=== PATIENT | male | born 1990 | race Two or more races ===

== ENCOUNTER 2020-07-09 00:22 | Inpatient (IN) | payer OTHER ==
[~2020-07-09] VITALS: Ht 175.3 cm; Wt 100.0 kg
[2020-07-09] MEDS ORDERED: MORPHINE SULFATE 4 MG/ML VIAL. IV ONE (00:45)
[2020-07-09] MEDS ORDERED: IV NORMAL SALINE 1000ML BAG 1,000 ML IV ONE (00:45)
[2020-07-09 00:52] LABS: BASO # 0.1 x10^3/uL (0.0-0.2); BASO % 1 % (0-3); EOS # 0.2 x10^3/uL (0.0-0.7); EOS % 2 % (0-3); HEMOGLOBIN 15.6 g/dL (13.0-17.5); LYMPH % 41 % (24-48); MEAN CORPUSCULAR HEMOGLOBIN 30 pg (25-35); MEAN CORPUSCULAR HGB CONC 35 g/dL (31-37); MEAN CORPUSCULAR VOLUME 85 fL (79-100); MONO # 0.7 x10^3/uL (0.0-1.1); MONO % 7 % (0-9); NEUT # 4.7 x10^3/uL (1.8-7.7); NEUT % 49 % (31-73); PLATELET COUNT 278 x10^3/uL (140-400); RED BLOOD COUNT 5.28 x10^6/uL (4.30-5.70); RED CELL DISTRIBUTION WIDTH 13.3 % (11.5-14.5); WHITE BLOOD COUNT 9.6 x10^3/uL (4.0-11.0)
[2020-07-09 01:01] LABS: CALCIUM 8.6 mg/dL (8.5-10.1); CREATININE 1.2 mg/dL (0.7-1.3); GFR 71.1; POTASSIUM 3.2 mmol/L (3.5-5.1)
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
[2020-07-09 01:07] LABS: ALBUMIN 4.2 g/dL (3.4-5.0); ALBUMIN/GLOBULIN RATIO 1.4 (1.0-1.7); TOTAL BILIRUBIN 0.4 mg/dL (0.2-1.0); TOTAL PROTEIN 7.3 g/dL (6.4-8.2)
[2020-07-09] MEDS ORDERED: IOHEXOL 300 MG/ML 100ML VIAL. IV ONE (01:45)
[2020-07-09] MEDS ORDERED: CONTRAST GIVEN. MC PRN (02:00)
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
[2020-07-09] MEDS ORDERED: ONDANSETRON PF 4 MG/2 ML VIAL. IV PRN ×2 (03:45→14:00)
[2020-07-09] MEDS ORDERED: MORPHINE SULFATE 2 MG/ML VIAL. IV PRN (03:45)
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
--- NOTE | 2020-07-09 08:22 | RAD ---
EXAMINATION: CT head without IV contrast INDICATION: Follow-up CT. COMPARISON: 07/09/2020 TECHNIQUE: Spiral acquisition of contiguous images from the skull base to the vertex were obtained. S agittal and coronal 2D reformatted series were provided by the technologist. Soft tissue and bone win javid algorithms were reviewed. Exposure: One or more of the following individualized dose reduction techniques were utilized for thi s examination: 1. Automated exposure control 2. Adjustment of the mA and/or kV according to patient size 3. Use of iterative reconstruction technique. FINDINGS: Neither mass, midline shift, intracranial hemorrhage, acute/subacute ischemic changes, nor extraaxial fluid collections are seen. The brain parenchyma is normal in appearance. The ventricles are normal in size. The paranasal sinuses, mastoid air cells, and middle ears are clear. The orbital contents appear within normal limits. IMPRESSION: No evidence of acute intracranial abnormality. Electronically signed by: Ghassan Salvador MD (07/09/2020 8:20 AM) [id number]
[2020-07-09 08:30] VITALS: BP 118/79
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
[2020-07-09 11:00] VITALS: BP 132/93
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
[2020-07-09] MEDS ORDERED: DOCUSATE SODIUM 100 MG CAPSULE. PO PRN (14:00)
[2020-07-09] MEDS ORDERED: ACETAMINOPHEN 325 MG TABLET. PO PRN (14:00)
[2020-07-09] MEDS ORDERED: ZOLPIDEM 5 MG TABLET. PO PRN (14:00)
[2020-07-09] MEDS ORDERED: HYDROmorphone 2 MG/ML VIAL IV PRN (14:00)
[2020-07-09] MEDS ORDERED: 0.9 % SODIUM CHLORIDE 10 ML DISP.SYRIN. IV PRN (14:00)
[2020-07-09] MEDS ORDERED: LORazepam 0.5 MG TABLET PO PRN (14:00)
[2020-07-09] MEDS ORDERED: ALBUTEROL SULFATE 2.5 MG/3 ML NEBU. NEB PRN (14:00)
[2020-07-09] MEDS ORDERED: POTASSIUM CHLORIDE 20 MEQ TABLET.ER. PO ONE (14:00)
[2020-07-09] MEDS ORDERED: cloNIDine HCL 0.1 MG TABLET PO PRN (14:00)
[2020-07-09] MEDS ORDERED: SODIUM PHOSPHATES 19/7GM 133 ML ENEMA. PR PRN (14:00)
[2020-07-09] MEDS ORDERED: guaiFENesin ORAL 200 MG/10 ML LIQUID. PO PRN (14:00)
[2020-07-09] MEDS ORDERED: MAG HYDROX/ALUMINUM HYD/SIMETH 30 ML ORAL.SUSP PO PRN (14:00)
[2020-07-09 15:00] VITALS: BP 116/73
[2020-07-09] MEDS: ENOXAPARIN 40 MG/0.4 ML SYRINGE. SQ SCH (15:18)
[2020-07-09] MEDS: ACETAMINOPHEN 325 MG TABLET. PO PRN (15:18)
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
[2020-07-09 18:48] LABS: BILIRUBIN,URINE NEGATIVE (NEG); CLARITY,URINE CLEAR; COLOR,URINE YELLOW; NITRITE,URINE NEGATIVE (NEG); PROTEIN,URINE NEGATIVE (NEG-TRACE); UROBILINOGEN,URINE 0.2 mg/dL (0.2 mg/dL)
[2020-07-09 18:55] LABS: BARBITURATES NEG (NEG); BENZODIAZEPINES NEG (NEG); CANNABINOIDS NEG (NEG); COCAINE NEG (NEG); METHADONE NEG (NEG); OPIATES POS (NEG); PHENCYCLIDINE NEG (NEG)
[2020-07-09 18:57] LABS: BACTERIA,URINE 0 /HPF (0-FEW); WBC,URINE 0 /HPF (0-4)
[2020-07-09 18:58] LABS: AMPHETAMINE/METHAMPHETAMINE NEG (NEG)
[2020-07-09 19:00] VITALS: BP 132/81
[2020-07-09 23:32] VITALS: BP 128/67
[2020-07-10 03:00] VITALS: BP 141/98
--- NOTE | 2020-07-10 05:10 | EKG ---
[facility] [address] [place] [address] Test Date: 2020-07-09 Test Time: 00:33:55 Pat Name: SUZIE SHRESTHA Department: Room: 430 Gender: M Orthotics Prosthetics Assistant: : 1990 Requested By: CAT HANSEN Order Number: [id number] Reading MD: Measurements Intervals Wayne Rate: 67 P: NC: QRS: 9 QRSD: 106 T: 4 QT: 398 QTc: 423 Interpretive Statements IRREGULAR RHYTHM, NO P-WAVE FOUND OTHERWISE NORMAL ECG RI6.02 No previous ECG available for comparison
[2020-07-10 07:00] VITALS: BP 120/86
[2020-07-10 07:13] LABS: CALCIUM 8.7 mg/dL (8.5-10.1); CREATININE 0.9 mg/dL (0.7-1.3); GFR 99.1; POTASSIUM 3.6 mmol/L (3.5-5.1)
[2020-07-10] MEDS ORDERED: POTASSIUM CHLORIDE 20 MEQ TABLET.ER. PO SCH (08:00)
[2020-07-10] MEDS: ACETAMINOPHEN 325 MG TABLET. PO PRN (09:02)
--- NOTE | 2020-07-10 10:09 | NUR ---
SW following. Discussed with RN, pt from home, room air, regular diet. MRI today. PT/OT ordered. Per RN, pt wanting to discharge home today. RN advised no SW needs at this time. SW will continue to follow.
[2020-07-10 11:00] VITALS: BP 134/86
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
[2020-07-10] MEDS ORDERED: IBUP-1007 PO (13:26)
[2020-07-10] MEDS ORDERED: ACET325T21 PO (13:26)
--- NOTE | 2020-07-10 13:27 | DISCH ---
DISCHARGE INSTRUCTIONS Condition on Discharge Condition on Discharge: Stable Activity After Discharge Activity Instructions for Disc: Activity as tolerated Lifting Instructions after Dis: Do not lift >10 pounds Exercise Instruction after Dis: Walk 15 min, 3 x per day Driving Instructions after Dis: Do not drive today Weight Bearing Status after Di: Full weight bearing Diet after Discharge Diet after Discharge: Cardiac Follow-Up Follow up with: PCP within 2 weeks of discharge Follow Up With: Surgery or orthopedics as needed ODALIS GARG MD July 10, 2020 13:27
[2020-07-10] MEDS: ENOXAPARIN 40 MG/0.4 ML SYRINGE. SQ SCH (14:00)
--- NOTE | 2020-07-10 15:43 | NUR ---
Patient discharge home with self care today via wheelchair, accompanied by aid. Patient is stable, IV removed, and discharge paperwork given to patient. Patient verbalized understanding of follow up and discharge instruction.
== END 2020-07-10 15:46 | disposition home or self-care (01) | DRG 563 ==
LOC: ER 00:22 → ED HOLD 03:29 → 4 NORTH 08:20 → OBSVTOIN 13:55
PROVIDERS: ADMIT Family Medicine; ATTEND Family Medicine
DX: S82.142A Displaced bicondylar fracture of left tibia, initial encounter for closed fracture (principal); S09.90XA Unspecified injury of head, initial encounter; E87.6 Hypokalemia; F17.210 Nicotine dependence, cigarettes, uncomplicated; S16.1XXA Strain of muscle, fascia and tendon at neck level, initial encounter; R07.89 Other chest pain; M54.9 Dorsalgia, unspecified; V43.52XA Car driver injured in collision with other type car in traffic accident, initial encounter; Y92.410 Unspecified street and highway as the place of occurrence of the external cause; Z82.49 Family history of ischemic heart disease and other diseases of the circulatory system; Z87.442 Personal history of urinary calculi; Y93.89 Activity, other specified; Y99.8 Other external cause status
CPT/HCPCS: 36415; 70450; 71260; 72125; 72146; 73562; 73630; 73700; 74177; 80048; 80053; 80307; 81001; 84484; 85025; 93005; 96361; 96374; 96376; G0378; G0379; J1650; J2270; J7030; Q9967; 97116-GP; 99285-25